=== PATIENT | male | born 1990 | race Caucasian/White ===

== ENCOUNTER 2017-01-03 17:46 | Emergency (ER) | payer OTHER ==
[2017-01-03 17:56] VITALS: BP 138/92
[2017-01-03] MEDS ORDERED: BUPIVACAINE 0.5% PF 30 ML VIAL SUBQ STA (19:29)
[2017-01-03] MEDS ORDERED: BUPIVACAINE 0.25% PF 30 ML VIAL ONE (19:30)
--- NOTE | 2017-01-03 20:01 | ED Physician Documentation ---
History of Present Illness - Stated complaint Stated Complaint: FINGER LAC - Chief complaint Chief Complaint: Ext Problem - History obtained from History obtained from: Patient - Additonal information Additional information: this patient is a 26-year-old male who is right-hand dominant who presents with a complaint of a amputation injury to the right index finger. It occurred shortly prior to arrival when he is using a mandolin to cut [place] fries. He denies any injury elsewhere. First-aid was provided to the scene. His tetanus prophylaxis is up-to-date. Review of systems: For pertinent positive and negatives in the review of systems please see history of present illness. Otherwise all other systems have been reviewed and are negative. Dragon disclaimer: Parts of this medical record were created using voice recognition technology. Because of the inherent limitations of this system occasional same sounding word substitutions do occur and persist despite proofreading. Please read the document for context. PD PAST MEDICAL HISTORY - Past Medical History Past Medical History: No - Past Surgical History Past Surgical History: No - Present Medications Home Medications: Ambulatory Orders Medication Instructions Recorded Confirmed Tramadol HCl 50 mg PO Q8HR PRN #14 tablet 01/03/17 - Allergies Allergies/Adverse Reactions: Allergies Allergy/AdvReac Type Severity Reaction Status Date / Time No Known Drug Allergies Allergy Verified 01/03/17 17:56 - Social History Does the pt smoke?: Yes Smoking Status: Current every day smoker - Immunizations Immunizations are current?: Yes PD ED PE NORMAL - General General: Alert and oriented X 3, No acute distress, Well developed/nourished - HEENT HEENT: Atraumatic - Free text exam Free text exam: On examination the patient has a amputation injury to the right distal phalanx index finger. This amputation is transverse and does involve a small amount of the nail however does not involve the distal phalanx. Results - Vitals Vitals: Vital Signs - 24 hr 01/03/17 17:55 Temperature 36.4 C L Heart Rate 81 Respiratory 16 Rate Blood Pressure 138/92 H O2 Saturation 100 Oxygen O2 Source Room air PD MEDICAL DECISION MAKING - ED course ED course: [id number] male status post amputation to right distal phalanx on the mandolin. Digital nerve was block was performed in usual fashion. 8 cc of Sensorcaine without epinephrine was infused. Once there was good anesthesia of the distal phalanx was cleansed with Hibiclens and water. Patient tolerated procedure well. We discussed management of this amputation. He will continue to do dressing changes, he is not adherent gauze, follow-up with his physician in 3-4 days. Disposition: To home Clinical impression: 1. Amputation distal phalanx right index finger Departure - Departure Disposition: Home, Self Care Clinical Impression: Finger amputation, traumatic Qualifiers: Encounter type: initial encounter Qualified Code(s): S68.119A - Complete traumatic metacarpophalangeal amputation of unspecified finger, initial encounter Condition: Good Instructions: ED Laceration Amputation Finger Tip Open Tx Follow-Up: your,physician [Other] Prescriptions: Tramadol HCl 50 mg PO Q8HR PRN #14 tablet PRN Reason: Pain
== END 2017-01-03 20:45 | disposition home or self-care (01) ==
LOC: ED 17:46
DX: S68.110A Complete traumatic metacarpophalangeal amputation of right index finger, initial encounter (principal); W27.8XXA Contact with other nonpowered hand tool, initial encounter; Y93.G1 Activity, food preparation and clean up; F17.200 Nicotine dependence, unspecified, uncomplicated
CPT/HCPCS: 64450; 99283

== ENCOUNTER 2017-03-27 12:31 | Emergency (ER) | payer OTHER ==
--- NOTE | 2017-03-27 14:20 | ED Physician Documentation ---
PD HPI CHEST PAIN - Stated complaint Stated Complaint: CHEST PX - Chief complaint Chief Complaint: Cardiac - History obtained from History obtained from: Patient - History of Present Illness Timing - onset: How many days ago (few) Timing - onset during: Other (randomly, most often at rest.). No: Light activity, Exertion Timing - duration: Seconds Timing - details: Abrupt onset, Now resolved (he has had brief sharp chest pains that are quite intense when they happen, last just 1-2 seconds and then better. Intermittent and had been every few weeks or so for past year perhaps, but then has had a few of them the past several days. Feels okay between times. Not exertionally related nor related to eating, position, activity.), Intermittant Quality: Sharp, Stabbing, Pain Location: Left chest Radiation: No: Jaw, Neck, Back, Abdominal, Left upper extremity, Right upper extremity, Other Worsened by: No: Exertion, Inspiration, Movement, Palpation, Position Associated symptoms: Shortness of air. No: Diaphoresis, Nausea, Feeling faint / dizzy, Palpitations Similar symptoms before: No diagnosis Recently seen: Not recently seen Review of Systems Constitutional: denies: Fever, Chills Nose: denies: Rhinorrhea / runny nose, Congestion Throat: denies: Sore throat Cardiac: denies: Palpitations, Pedal edema, Calf pain Respiratory: denies: Dyspnea, Cough, Wheezing Neurologic: denies: Near syncope, Syncope PD PAST MEDICAL HISTORY - Past Medical History Cardiovascular: None Respiratory: None Endocrine/Autoimmune: None GI: None : None HEENT: None Psych: Anxiety, Panic attacks Musculoskeletal: None Derm: None Other Past Medical History: mild to moderate anxiet, pt uses vape system for nicotine. Pt states does use energy drinks. - Past Surgical History Past Surgical History: No - Present Medications Home Medications: Ambulatory Orders Medication Instructions Recorded Confirmed Tramadol HCl 50 mg PO Q8HR PRN #14 tablet 01/03/17 Naproxen 375 mg PO BID #20 tablet 03/27/17 - Allergies Allergies/Adverse Reactions: Allergies Allergy/AdvReac Type Severity Reaction Status Date / Time No Known Drug Allergies Allergy Verified 03/27/17 12:41 - Social History Does the pt smoke?: Yes Smoking Status: Current every day smoker Does the pt drink ETOH?: No - Family History Family history: reports: Other (no connective tissue disorders). denies: Venous thromboembolism, Aortic aneursym, Aortic dissection - Immunizations Immunizations are current?: Yes PD ED PE NORMAL - Vitals Vital signs reviewed: Yes - General General: Alert and oriented X 3, No acute distress, Well developed/nourished - HEENT HEENT: Pharynx benign - Neck Neck: Supple, no meningeal sign, No adenopathy, No JVD, No bruit - Cardiac Cardiac: RRR, No murmur - Respiratory Respiratory: Clear bilaterally - Abdomen Abdomen: Soft, Non tender - Derm Derm: Normal color, Warm and dry - Extremities Extremities: No edema, No calf tenderness / cord, Other (thin stature but not Marfanoid and no pectus of chest. ) Results - Vitals Vitals: Oxygen O2 Source Room air - EKG (time done) 12:39 Rate: Rate (enter#) (73) Rhythm: NSR [place]: Normal Intervals: Normal [place] QRS: Normal Ischemia: Normal ST segments. No: ST elevation c/w ischemia, ST depression - Labs Labs: Laboratory Tests 03/27/17 03/27/17 03/27/17 15:00 15:00 15:00 WBC 8.0 RBC 5.33 Hgb 15.1 Hct 43.9 MCV 82.2 MCH 28.3 MCHC 34.4 RDW 14.3 Plt Count 237 MPV 8.9 Neut # 4.6 Lymph # 2.6 [place] # 0.6 Eos # 0.2 Baso # 0.0 Absolute Nucleated RBC 0.00 Nucleated RBC % 0.0 ESR D-Dimer Sodium 138 Potassium 3.9 Chloride 100 L Carbon Dioxide 27 Anion Gap 11.0 BUN 14 Creatinine 0.9 Estimated GFR (MDRD) 101 Glucose 95 Calcium 10.1 Total Bilirubin 0.8 AST 22 ALT 30 Alkaline Phosphatase 43 Troponin I < 0.04 Total Protein 8.0 Albumin 5.2 Globulin 2.8 Albumin/Globulin Ratio 1.9 Lipase 28 03/27/17 03/27/17 15:00 15:00 WBC RBC Hgb Hct MCV MCH MCHC RDW Plt Count MPV Neut # Lymph # [place] # Eos # Baso # Absolute Nucleated RBC Nucleated RBC % ESR 1 D-Dimer < 200.0 L Sodium Potassium Chloride Carbon Dioxide Anion Gap BUN Creatinine Estimated GFR (MDRD) Glucose Calcium Total Bilirubin AST ALT Alkaline Phosphatase Troponin I Total Protein Albumin Globulin Albumin/Globulin Ratio Lipase - Rads (name of study) chest Radiology: Prelim report reviewed (normal) PD MEDICAL DECISION MAKING - ED course Complexity details: considered differential (fleeting intermittent nonexertional chest pains left anterior chest with normal labs here. Unknown cause. ECG normal. ESR normal. D-dimer negative. CXR clear. ), d/w patient Departure - Departure Disposition: 01 Home, Self Care Clinical Impression: Intermittent left-sided chest pain Condition: Stable Record reviewed to determine appropriate education?: Yes Instructions: ED Chest Pain Atypical Unkn Cause Follow-Up: ORNDA Aggarwal [Provider Group] Prescriptions: Naproxen 375 mg PO BID #20 tablet Comments: I do not know the cause of the episodic pain that you are having on the chest. There is no signs of bad causes at this time. Consider an anti-inflammatory such as naproxen twice daily for 7-10 days as there may be some musculoskeletal inflammation causing this. Follow-up with your primary care if persistent symptoms or other symptoms develop with it. Discharge Date/Time: 03/27/17 16:49
[2017-03-27] MEDS ORDERED: SODIUM CHLORIDE FLUSH 0.9% 10 ML SYRINGE IVP ONE (14:52)
[2017-03-27] MEDS ORDERED: HYDROmorphone 1 MG/ML CARPUJECT ONE (14:52)
[2017-03-27] MEDS ORDERED: KETOROLAC 30 MG/ML VIAL ONE (14:52)
--- NOTE | 2017-03-27 14:53 | XRAY Preliminary Report ---
Exam: XR Chest 2 View PA/LAT IMPRESSION: No acute radiographic cardiopulmonary process [facility] SITE ID: [id number]
--- NOTE | 2017-03-27 14:55 | XRAY Report ---
EXAM: CHEST RADIOGRAPHY EXAM DATE: 03/27/2017 02:47 PM. CLINICAL HISTORY: Chest Pain. COMPARISON: None. TECHNIQUE: 2 views. FINDINGS: Lungs/Pleura: No focal opacities evident. No pleural effusion. No pneumothorax. Increased volumes. Mediastinum: Heart and mediastinal contours are unremarkable. Other: None. IMPRESSION: No acute radiographic cardiopulmonary process [facility] Referring Provider Line: [phone] SITE ID: [id number]
[2017-03-27 15:17] LABS: BASOPHILS % (AUTO) 0.4 %; EOSINOPHILS # (AUTO) 0.2 10^3/uL (0.0-0.7); HCT - HEMATOCRIT 43.9 % (42.0-52.0); HGB - HEMOGLOBIN 15.1 g/dL (14.0-18.0); LYMPHOCYTES # (AUTO) 2.6 10^3/uL (1.5-3.5); LYMPHOCYTES % (AUTO) 32.2 %; MEAN CORPUSCULAR HEMOGLOBIN 28.3 pg (27.0-31.0); MEAN CORPUSCULAR HGB CONC 34.4 g/dL (32.0-36.0); MEAN CORPUSCULAR VOLUME 82.2 fL (80.0-94.0); MEAN PLATELET VOLUME 8.9 fL (7.4-11.4); MONOCYTES # (AUTO) 0.6 10^3/uL (0.0-1.0); MONOCYTES % (AUTO) 7.7 %; NEUTROPHILS # (AUTO) 4.6 10^3/uL (1.5-6.6); NEUTROPHILS % (AUTO) 57.7 %; RED BLOOD COUNT 5.33 10^6/uL (4.70-6.10); RED CELL DISTRIBUTION WIDTH 14.3 % (12.0-15.0)
[2017-03-27 15:22] LABS: ALBUMIN/GLOBULIN RATIO 1.9 (1.0-2.2); BILIRUBIN,TOTAL 0.8 mg/dL (0.2-1.0); CALCIUM 10.1 mg/dL (8.5-10.3); CREATININE 0.9 mg/dL (0.6-1.2); POTASSIUM 3.9 mmol/L (3.5-5.0)
[2017-03-27 15:29] VITALS: BP 123/69
== END 2017-03-27 16:49 | disposition home or self-care (01) ==
LOC: ED 12:31
DX: R07.9 Chest pain, unspecified (principal); F17.200 Nicotine dependence, unspecified, uncomplicated
CPT/HCPCS: 36415; 71020; 80053; 83690; 84484; 85025; 85379; 85651; 93005; 99283; 99284

== ENCOUNTER 2017-11-19 21:08 | Emergency (ER) | payer OTHER ==
[2017-11-19 21:21] VITALS: BP 139/77
--- NOTE | 2017-11-19 22:28 | ED Physician Documentation ---
PD HPI HEENT - Stated complaint Stated Complaint: RT EAR PX/LOSS OF HEARING - Chief complaint Chief Complaint: Heent - History obtained from History obtained from: Patient - History of Present Illness Timing - onset: Other (2 days of R ear pain starting on waking with decreased hearing. Pain radiates down toward R jaw. Antecedent to this did have cough/URI/ congestion, now better. Ibuprofen was not veyr helpful.) Pain level max: 5 PD PAST MEDICAL HISTORY - Past Medical History Cardiovascular: None Respiratory: None Endocrine/Autoimmune: None GI: None : None HEENT: None Psych: Anxiety, Panic attacks Musculoskeletal: None Derm: None - Past Surgical History Past Surgical History: No - Present Medications Home Medications: Ambulatory Orders Medication Instructions Recorded Confirmed Tramadol HCl 50 mg PO Q8HR PRN #14 tablet 01/03/17 Naproxen 375 mg PO BID #20 tablet 03/27/17 Amoxicillin 500 mg PO TID #30 capsule 11/19/17 - Allergies Allergies/Adverse Reactions: Allergies Allergy/AdvReac Type Severity Reaction Status Date / Time No Known Drug Allergies Allergy Verified 11/19/17 21:21 - Social History Does the pt smoke?: Yes Smoking Status: Current every day smoker Does the pt drink ETOH?: No - Immunizations Immunizations are current?: Yes PD ED PE NORMAL - Vitals Vital signs reviewed: Yes - General General: Alert and oriented X 3, No acute distress - HEENT HEENT: Other (Bilateral cerumen impaction after removing he does have right otitis media.) - Neck Neck: Supple, no meningeal sign, No bony TTP - Neuro Neuro: Alert and oriented X 3, Normal speech - Psych Psych: Normal mood, Normal affect Results - Vitals Vitals: Vital Signs - 24 hr 11/19/17 21:20 Temperature 36.8 C Heart Rate 90 Respiratory 16 Rate Blood Pressure 139/77 H O2 Saturation 97 Oxygen O2 Source Room air Procedures - General procedure General procedure: Using a combination of curette and syringe irrigation the cerumen from both ear canals was removed with mostly resolution of his symptoms. Departure - Departure Disposition: 01 Home, Self Care Clinical Impression: Impacted cerumen of both ears ROM (right otitis media) Qualifiers: Otitis media type: suppurative Chronicity: acute Recurrence: recurrent Spontaneous tympanic membrane rupture: without spontaneous rupture Qualified Code(s): H66.004 - Acute suppurative otitis media without spontaneous rupture of ear drum, recurrent, right ear Condition: Good Record reviewed to determine appropriate education?: Yes Instructions: ED Otitis Media Acute Adult, ED Wax Ear Home Removal Prescriptions: Amoxicillin 500 mg PO TID #30 capsule Comments: Recheck with your flight surgeon in 1 week. Return if worse. Your blood pressure was elevated today on check into the emergency department. This does not mean that you have hypertension, it is a common phenomenon to come to the emergency department and have elevated blood pressure. I recommend that you see your primary care physician within the week to have it rechecked when you are feeling better.
[2017-11-19] MEDS ORDERED: AMOXICILLIN 250 MG CAPSULE PO STA (22:39)
== END 2017-11-19 22:57 | disposition home or self-care (01) ==
LOC: ED 21:08
DX: H66.004 Acute suppurative otitis media without spontaneous rupture of ear drum, recurrent, right ear (principal); H61.23 Impacted cerumen, bilateral; R03.0 Elevated blood-pressure reading, without diagnosis of hypertension; F17.200 Nicotine dependence, unspecified, uncomplicated
CPT/HCPCS: 69210; 99283; A9270

== ENCOUNTER 2021-05-01 18:33 | Emergency (ER) | payer OTHER ==
[2021-05-01] MEDS ORDERED: KETOROLAC 60 MG/2 ML VIAL IM STA (18:59)
--- NOTE | 2021-05-01 19:02 | ED Physician Documentation ---
History of Present Illness - Stated complaint Stated Complaint: LEFT THIGH PX - Chief complaint Chief Complaint: Ext Problem - History obtained from History obtained from: Patient - History of Present Illness Pain level max: 9 Pain level now: 7 - Additonal information Additional information: 30-year-old male with left thigh pain. This started about a week ago. Is gradually worsened since that time. Worse with movement and better with rest. Has not taken anything for the pain. Went to the walk-in clinic today and they were concerned about potential DVT so sent him here. Patient has no leg swelling. No recent travel. No history of trauma. Review of Systems Ten Systems: 10 systems reviewed and negative Constitutional: denies: Fever, Chills GI: denies: Nausea, Vomiting, Diarrhea Skin: denies: Rash Musculoskeletal: denies: Neck pain, Back pain Neurologic: denies: Headache PD PAST MEDICAL HISTORY - Past Medical History Cardiovascular: None Respiratory: None Endocrine/Autoimmune: None GI: None : None HEENT: None Psych: Anxiety, Panic attacks Musculoskeletal: None Derm: None - Past Surgical History Past Surgical History: No - Present Medications Home Medications: Ambulatory Orders Medication Instructions Recorded Confirmed Fluoxetine HCl [Prozac] 60 mg PO DAILY 05/01/21 05/01/21 Lisinopril [Zestril] 20 mg PO DAILY 05/01/21 05/01/21 Meloxicam [Mobic] 15 mg PO DAILY PRN #20 tablet 05/01/21 - Allergies Allergies/Adverse Reactions: Allergies Allergy/AdvReac Type Severity Reaction Status Date / Time No Known Drug Allergies Allergy Verified 05/01/21 18:44 - Social History Does the pt smoke?: Yes Smoking Status: Current every day smoker Does the pt drink ETOH?: No Does the pt have substance abuse?: No - Immunizations Immunizations are current?: Yes - POLST Patient has POLST: No PD ED PE NORMAL - Vitals Vital signs reviewed: Yes - General General: Alert and oriented X 3, No acute distress, Well developed/nourished - HEENT HEENT: Moist mucous membranes - Neck Neck: Supple, no meningeal sign - Cardiac Cardiac: RRR - Respiratory Respiratory: No respiratory distress, Clear bilaterally - Derm Derm: Warm and dry - Extremities Extremities: Other (Left leg - Tender to palpation over the left anterior thigh at the proximal aspect, hip flexor area. Pain is worse with active range of motion, lessened with passive range of motion. Full range of motion present. No palpable hernias. Neurovascular intact. No leg swelling. no skin changes) - Neuro Neuro: Alert and oriented X 3 Results - Vitals Vitals: Vital Signs - 24 hr 05/01/21 05/01/21 05/01/21 18:40 20:00 20:33 Temperature 36.7 C Heart Rate 82 76 72 Respiratory 18 19 17 Rate Blood Pressure 157/114 H 146/93 H 148/98 H O2 Saturation 99 95 95 Oxygen O2 Source Room air - Rads (name of study) L hip xray Radiology: Final report received, EMP read contemporaneously, See rad report (no acute abnormality) LLE duplex US Radiology: Final report received, EMP read contemporaneously, See rad report (no DVT) PD MEDICAL DECISION MAKING - ED course Complexity details: reviewed results, re-evaluated patient, considered differential, d/w patient ED course: 30-year-old male appears to have a hip flexor tendinitis. Will place on long-acting anti-inflammatories. He was sent from the walk-in clinic for evaluation for DVT. This is negative. There are no bony irregularities to suggest fracture or sarcomas. We will have him follow-up with his doctor for further care, encourage gentle stretching. Patient counseled regarding signs and symptoms for which I believe and urgent re-evaluation would be necessary. Patient with good understanding of and agreement to plan and is comfortable going home at this time This document was made in part using voice recognition software. While efforts are made to proofread this document, sound alike and grammatical errors may occur. Departure - Departure Disposition: 01 Home, Self Care Clinical Impression: Hip flexor tendonitis Qualifiers: Laterality: left Qualified Code(s): M76.892 - Other specified enthesopathies of left lower limb, excluding foot Condition: Good Instructions: Exercise Lower Body Hip Flexor, Hip Flexor Stretch Follow-Up: your,doctor in 1 week [Other] Prescriptions: Meloxicam [Mobic] 15 mg PO DAILY PRN #20 tablet PRN Reason: pain Comments: Your x-ray and ultrasound did not show any acute abnormalities today. Continue to gently stretch the hip flexor. Return if you worsen. Your prescriptions were sent to the [facility]. Discharge Date/Time: 05/01/21 20:36
--- NOTE | 2021-05-01 20:12 | Ultrasound Report ---
PROCEDURE: Duplex Ext Veins Left INDICATIONS: L thigh pain TECHNIQUE: Real-time imaging, as well as color and pulse Doppler interrogation, were performed of the lower extr emity deep veins from the inguinal ligament to the popliteal fossa. COMPARISON: None. FINDINGS: The deep veins are normally compressible, and free of intraluminal thrombus. Color and pu lse Doppler demonstrate normal phasic intraluminal flow. There is normal augmentation response to di stal compression maneuver. IMPRESSION: No DVT in the left lower extremity. Reviewed by: Ruddy Batres MD on 05/01/2021 8:11 PM PST Approved by: Ruddy Batres MD on 05/01/2021 8:11 PM PST Station ID: [id number]
--- NOTE | 2021-05-01 20:15 | XRAY Report ---
PROCEDURE: Hip w/Pelvis 2-3V LT INDICATIONS: L leg and hip pain, no injury TECHNIQUE: AP pelvis with lateral view(s) of the bilateral hip(s). COMPARISON: None. FINDINGS: Bones: No fracture or dislocations. Pelvic ring appears intact. No suspicious bony lesions. Soft tissues: The visualized bowel gas pattern is normal. No suspicious soft tissue calcifications. IMPRESSION: No fracture or dislocation. If clinical symptoms persist or suspicion for internal derang ement is high, MRI is suggested for follow-up evaluation. Reviewed by: Ruddy Batres MD on 05/01/2021 8:13 PM PST Approved by: Ruddy Batres MD on 05/01/2021 8:13 PM PST Station ID: [id number]
[2021-05-01 20:33] VITALS: BP 148/98
== END 2021-05-01 20:36 | disposition home or self-care (01) ==
LOC: ED 18:33
DX: M76.892 Other specified enthesopathies of left lower limb, excluding foot (principal); F17.200 Nicotine dependence, unspecified, uncomplicated
CPT/HCPCS: 96372; 99283; 99284

== ENCOUNTER 2021-09-13 12:39 | Outpatient (CLI) | payer OTHER ==
[2021-09-13 13:36] VITALS: BP 129/74
--- NOTE | 2021-09-13 13:36 | SLEEP CARE CONSULTATION ---
Information from patient questionnaire entered by Rodríguez Kaba MA. I have reviewed and concur with the information entered by Rodríguez Kaba MA. This document represents the service I personally performed and the decisions made by me, Karley Ellison ARNP. History of Present Illness Service Date and Time: 09/13/2021 1239 Reason for Visit: New patient (onset 08/2011, no priors,) Chief Complaint: reports: Unrefreshed sleep, Snoring, Excessive daytime sleepine ss, Observed pauses in breathing, Fatigue, Frequent awakenings at night Date of Onset: 5 YEARS Usual bedtime: 2000 Time it takes to fall asleep: 1-2 HOURS Snores at night: Yes Observed to quit breathing while asleep: Yes Sleeps alone due to snoring: Yes Number of times waking at night: OFTEN; 4-5 times on average Reasons for waking at night: reports: Snoring, Other (unknown reasons) Toss, Turn, or Twitch while sleeping: Yes Recalls having dreams: Yes Usually gets out of bed at: 0530 Feels refreshed in the morning: No Morning headache: Yes (daily; mild headache that goes away once he is moving around in morning) Sleepy or fatigued during the day: Yes Ever fallen asleep while driving: Yes (drowsy driving; gone out of [place], falls asleep at stoplight) Takes day naps: Yes (3-4 times a week for 1-2 hours) Dreams during day naps: Yes (vivid dreams) Prior sleep studies: No Additional HPI information: I had the pleasure of seeing TINO NEFF today regarding the possibility of him having a sleep disorder. His current complaints are excessive daytime sleepiness, observed pauses in breathing, fatigue, snoring, unrefreshed sleep and frequent night awakenings. He states he snores loudly and his ex- told him he stops breathing at night. He states he never feels rested during the day even if he sleeps all night. He lays down at 2000 but does not fall asleep for a couple hours. He will watch a movie or play on phone until sleepy. - Parasomnia Symptoms Ever been unable to move upon waking from sleep: No Walks in sleep: Yes Talks in sleep: Yes Ever acted out dreams in sleep: Yes Ever felt weak in the knees when startled or emotional: No Bothered by creepy, crawly, restless sensations in legs: No Problems with memory or concentration: No Subjective Initial [place] Sleepiness Scale score: 14 (09/12) Past Medical History Past Medical History: reports: Hypertension, Anxiety, Depression, Other (vasectomy 2019) Social History The patient's occupation is a AM. Patient is and [place] in [place]. Have you smoked in the past 12 months: Yes (vapes) Cigarettes per day (20/pack): 1 (VAPE) Years of smokin Smoking Pack Years: 0 Alcohol use: Yes Alcohol amount and frequency: 2-3 X WEEKLY Caffeine use: Yes Caffeine amount and frequency: 1-2 energy drinks X WEEKLY Family History Family history of sleep disordered breathing: Yes Family Hx Sleep Apnea: Mother: Snoring, Father: Snoring Allergies and Home Medications Drug allergies reviewed: Yes (NKDA) Home medication list reviewed: Yes Allergy and home medication list: Allergies No Known Drug Allergies Allergy (Verified 05/01/21 18:44) Medications: Fluoxetine 60 mg daily Lisinopril 20 mg daily Review of Systems Weight gain over past 5 years: 30 Cardiovascular: reports: high blood pressure Neurological: denies: headaches, head trauma Psychiatric: reports: anxiety, depression Ear/Nose/Throat: reports: nose bleeds (random), wisdom teeth removed. denies: injury to nose, tonsillectomy Endocrine: reports: sluggishness, too hot or cold Physical Exam Vital signs obtained and entered by: Linda KABA CMA [facility] Blood Pressure: 129/74 (LEFT, 85 RESP 16, PULSE 85,) Heart Rate: 84 O2 Saturation: 97 (CLOTH) Height: 5 ft 9 in Weight: 250 lb Body Mass Index: 36.9 BMI Classification: Obese Neck circumference: 15.5 (INCHES) Mouth and throat: normal Soft palate: long Hard palate: normal Uvula: normal Uvula visualization: 50% Mallampati Class II Tongue: normal in size Tonsils: 1+ Neck: normal w/o lymphadenopathy or thyromegaly Heart: regular rate and rhythm Lungs: clear bilaterally Impression and Plan 1. Suspected Obstructive Sleep Apnea-Hypopnea Syndrome, as suggested by a history of loud and irregular snoring, observed cessation of breath while asleep, morning headache, frequent awakening during the night, unrefreshed sleep, cognitive impairment, and excessive daytime sleepiness. Narrow oropharynx and obesity are common predisposing factors for obstructive sleep apnea-hypopnea syndrome. I recommend proceeding to polysomnography to confirm the diagnosis and to assess severity. If the patient has significant sleep disordered breathing, a manual CPAP titration study will also be performed to find the optimal treatment pressure. I informed the patient of what the sleep studies involve and after some discussion, obtained agreement to proceed. The pathophysiology of obstr uctive sleep apnea-hypopnea syndrome was discussed with the patient and health risks of cardiovascular and cerebrovascular disease if not treated. Risks of drowsy driving discussed in detail and patient advised to avoid long distance driving and to hide puller at the first sign of drowsiness. Patient agreed to plan. * Schedule polysomnography +- manual CPAP titration study and return in 1-2 weeks after the study to discuss result and initiate therapy. * Avoid long distance driving or driving when feeling sleepy. * Avoid alcohol, sedative and muscle relaxant around bedtime. * Attempt to lose weight. * Review instructions provided by trained office staff on how to prepare for the sleep study. * Return for follow-up after sleep study completed. Counseling Topics: Weight loss health impact Visit Type: In Office Time Spent with Patient (minutes): 35 Provider Statement: I spent 100% of the Face to Face Visit with the patient with greater than 50% spent counseling the patient and coordination of care.
== END 2021-09-13 12:40 | disposition home or self-care (01) ==
LOC: SC 12:39
PROVIDERS: ATTEND Nurse Practitioner Family
DX: R06.83 Snoring (principal); G47.8 Other sleep disorders; R06.81 Apnea, not elsewhere classified; R51.9 Headache, unspecified; G47.10 Hypersomnia, unspecified; R53.83 Other fatigue; I10 Essential (primary) hypertension; F17.290 Nicotine dependence, other tobacco product, uncomplicated; E66.9 Obesity, unspecified; Z68.36 Body mass index [BMI] 36.0-36.9, adult
CPT/HCPCS: 99203; 99212

== ENCOUNTER 2021-10-15 19:46 | Outpatient (CLI) | payer OTHER | END 2021-10-15 19:47 | disposition home or self-care (01) | LOC: SC 19:46 | PROVIDERS: ATTEND Nurse Practitioner Family | DX: G47.33 Obstructive sleep apnea (adult) (pediatric) (principal) | CPT/HCPCS: 95810 ==

== ENCOUNTER 2021-10-26 11:29 | Outpatient (CLI) | payer OTHER ==
--- NOTE | 2021-10-26 12:00 | SLEEP CARE CONSULTATION ---
Information from patient questionnaire entered by Rodríguez Kaba MA. I have reviewed and concur with the information entered by Rodríguez Kaba MA. This document represents the service I personally performed and the decisions made by , Karley Elilson ARNP. History of Present Illness Service Date and Time: 10/26/2021 1129 Initial [place] Sleepiness Scale score: 14 (2021) Current [place] Sleepiness Scale score: 20 (10/2021) Additional HPI information: TINO NEFF returns for follow up and results of the recently performed polysomnography. I explained the pathophysiology behind obstructive sleep apnea. We then spent quite a bit of time discussing different treatment options. For mild obstructive sleep apnea, surgery and oral appliance are alternatives to nasal CPAP therapy but in moderate or severe cases, nasal CPAP is the most effective and reliable treatment. I reviewed the impact of weight changes on sleep apnea and strongly recommended losing weight. After some discussion, the patient opted to go with the nasal CPAP therapy. Nasal autoCPAP set at 5-20 cmH20 will be ordered with rationale explained. A manual titration study will be ordered if unable to find optimal pressure with office adjustments. I explained how CPAP machine works and what to expect when using the machine. Using CPAP every night in order to get used to it was emphasized. Patient advised to put CPAP mask on before getting into bed so as not to fall asleep without CPAP. To assist acclimation to CPAP use, it could also be used for a short time during day while reading or watching TV. The patient was instructed to call the CPAP supplier to discuss any mechanical problem that may occur. If the mask given is uncomfortable or is difficult to keep on through the night even with adjustment, contact the CPAP supplier as many will replace with another mask style if notified before 30 days. If snoring or perceives is not getting enough air or too much air from the machine, notify this office. AASM patient education PAP tips reviewed and given to patient. Patient counseled not drink alcohol less than 4 hours before bedtime as it can increase snoring and apnea. Patient was cautioned about risks of drowsy driving until sleepiness symptoms resolve. Sleep Study - Results Type of Sleep Study: Polysomnography (F/U POLY. 10/15/21 [facility],) Prior sleep studies: No Polysomnography/Home Sleep Study results: IMPRESSION: The quality of the study is good. The patient had reduced sleep efficiency frequent awakenings throughout the night. The sleep architecture was abnormal for sleep fragmentation and reduced amount of time spent in REM and slow wave sleep (N3). Respiratory monitoring showed severe obstructive sleep apnea-hypopnea (AHI = 49.8) associated with frequent arousals, oxyhemoglobin desaturation and moderate hypoxia (deion oxygen saturation of 79%). The respiratory events occurred more frequently during supine sleep (supine AHI = 85.3; nonsupine = 34.71). Snore was moderate to loud in intensity. There was no significant periodic leg movement of sleep. Cardiac rhythm was normal sinus rhythm without significant arrhythmia. No abnormal behavior (parasomnia) observed during the night. Allergies and Home Medications Known drug allergies: No Drug allergies reviewed: Yes Home medication list reviewed: Yes (no changes) Allergy and home medication list: Allergies No Known Drug Allergies Allergy (Verified 05/01/21 18:44) Review of Systems Review of systems same as previous: Yes (no changes) Physical Exam Vital signs obtained and entered by: Linda KABA CMA AAPR, Blood Pressure: 128/72 (RESP 18, PULSE 81, LEFT) Cuff size: wrist Heart Rate: 83 O2 Saturation: 97 Height: 5 ft 9 in Weight: 250 lb (CLOTHES) Body Mass Index: 36.9 BMI Classification: Obese Impression and Plan 1. Obstructive Sleep Apnea-Hypopnea Syndrome, severe, with lowest oxygen saturation of 79%. Obviously this is the cause of the patients symptoms of unrefreshed sleep, and excessive daytime sleepiness. Positive pressure therapy could benefit hypertension, anxiety and depression. As mentioned above, the patient will be started on nasal autoCPAP therapy with pressure set at 5-20 cmH2 O. A manual titration study will be completed if unable to find optimal treatment pressure with office adjustments. Compliance guidelines also reviewed. A copy of compliance guidelines will be given for reference at check out. Because the apnea is more severe supine, I instructed to avoid sleeping supine using pillow positioning until able to start CPAP use. 2. Hypoxemia, moderate, deion oxygen saturation of 79% with 32.4 minutes spent under 90%. His baseline oxygen saturation was normal with an average oxygen saturation of 93%. * Nasal auto CPAP therapy, pressure at 5-20 cm H2O. * Attempt to lose weight. * Avoid alcohol consumption near bedtime. * Avoid supine sleep until using CPAP. * The patient is again cautioned about driving until sleepiness completely resolves. * Return one month after CPAP obtained. I will assess response to therapy and compliance at that time. Counseling Topics: Weight loss health impact Visit Type: In Office Time Spent with Patient (minutes): 20 Provider Statement: I spent 100% of the Face to Face Visit with the patient with greater than 50% spent counseling the patient and coordination of care.
[2021-10-26 12:01] VITALS: BP 128/72
== END 2021-10-26 11:30 | disposition home or self-care (01) ==
LOC: SC 11:29
PROVIDERS: ATTEND Nurse Practitioner Family
DX: G47.33 Obstructive sleep apnea (adult) (pediatric) (principal); R09.02 Hypoxemia; E66.9 Obesity, unspecified; Z68.36 Body mass index [BMI] 36.0-36.9, adult
CPT/HCPCS: 99212; 99213

== ENCOUNTER 2021-12-12 11:34 | Outpatient (CLI) | payer OTHER ==
--- NOTE | 2021-12-12 13:06 | XRAY Report ---
PROCEDURE: Ankle 3 View RT INDICATIONS: PX R ANKLE JT TECHNIQUE: 3 views of the ankle were acquired. COMPARISON: None FINDINGS: Bones: No fractures or dislocations. Ankle mortise is normally aligned. No suspicious bony lesions . Soft tissues: No tibiotalar joint effusion. Achilles tendon appears normal. IMPRESSION: No acute fracture. No osseous lesion. If symptoms and/or clinical suspicion for patholog y continue, further assessment with repeat plain films, or advanced imaging (e.g., CT, MRI, or bone s can) is recommended for further assessment. Reviewed by: Mitzi Urias MD on 12/12/2021 1:05 PM PDT Approved by: Mitzi Urias MD on 12/12/2021 1:05 PM PDT Station ID: [id number]
== END 2021-12-12 11:35 | disposition home or self-care (01) ==
LOC: DI 11:34
PROVIDERS: ATTEND Physician Assistant
DX: M25.571 Pain in right ankle and joints of right foot (principal)

== ENCOUNTER 2023-06-27 10:44 | Emergency (ER) | payer OTHER ==
--- NOTE | 2023-06-27 11:10 | ED Physician Documentation ---
History of Present Illness - Stated complaint Stated Complaint: SHAKING/N/V - Chief complaint Chief Complaint: General - History obtained from History obtained from: Patient, Friend - Additonal information Additional information: Patient presents from the [facility] (acquired by [facility] in 2014) with a friend. He reports that he has been drinking over a liter of vodka a day for prolonged period of time over the last week or so he has been able to cut back to about 12-15 shots of vodka a day. Last alcoholic beverage was last night around 1999 he is here today with severe tremors, body aches, nausea vomiting. 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 PD PAST MEDICAL HISTORY - Past Medical History Past Medical History: Yes Cardiovascular: None Respiratory: None Endocrine/Autoimmune: None GI: None : None HEENT: None Psych: Anxiety, Panic attacks Musculoskeletal: None Derm: None - Past Surgical History Past Surgical History: No - Present Medications Home Medications: Ambulatory Orders Medication Instructions Recorded Confirmed Fluoxetine HCl [Prozac] 40 mg PO DAILY 05/01/21 06/27/23 Lisinopril [Zestril] 20 mg PO DAILY 05/01/21 06/27/23 - Allergies Allergies/Adverse Reactions: Allergies Allergy/AdvReac Type Severity Reaction Status Date / Time No Known Drug Allergies Allergy Verified 06/27/23 10:57 - Social History Does the pt smoke?: Yes Smoking Status: Current every day smoker Does the pt drink ETOH?: Yes Does the pt have substance abuse?: No - Immunizations Immunizations are current?: Yes - POLST Patient has POLST: No PD ED PE NORMAL - Vitals Vital signs reviewed: Yes - General General: Alert and oriented X 3 - Cardiac Cardiac: No murmur, Strong equal pulses - Respiratory Respiratory: No respiratory distress - Derm Derm: Other (flushed) - Neuro Neuro: Alert and oriented X 3 Verbal: Oriented - Psych Psych: Other (anxious) - Free text exam Free text exam: Patient appears to be diaphoretic quite flush with generalized body tremors Results - Vitals Vitals: Vital Signs - 24 hr 06/27/23 06/27/23 10:50 13:09 Temperature 36.6 C Heart Rate 97 88 Respiratory 24 16 Rate Blood Pressure 208/106 H 169/109 H O2 Saturation 96 95 Oxygen O2 Source Room air - EKG (time done) 1235 EKG releavant findings:: EKG personally interpreted by author of this note. Relevant findings are: Rate: Rate (enter#) (87) Rhythm: NSR, Other (Some ST depression on the anterior leads) Reliance: Normal Intervals: Prolonged QT QRS: Normal Ischemia: ST depression Compare to prior EKG: Changed from prior EKG - Labs Labs: Laboratory Tests 06/27/23 06/27/23 06/27/23 11:17 11:17 13:25 WBC 10.3 RBC 5.88 Hgb 19.2 H Hct 52.6 H MCV 89.5 MCH 32.7 H MCHC 36.5 H RDW 13.1 Plt Count 343 MPV 10.8 Neut # (Auto) 7.9 H Lymph # (Auto) 1.4 L Garrard # (Auto) 0.9 Eos # (Auto) 0.0 Baso # (Auto) 0.0 Absolute Nucleated RBC 0.00 Nucleated RBC % 0.0 Sodium 135 Potassium 3.3 L Chloride 91 L Carbon Dioxide 28 Anion Gap 16.0 H BUN 6 Creatinine 0.8 Estimated GFR (MDRD) 111 Glucose 125 H Calcium 9.6 Magnesium 1.2 L Total Bilirubin 1.3 H AST 133 H ALT 162 H Alkaline Phosphatase 73 Troponin I High Sens 5.3 B-Natriuretic Peptide Total Protein 8.4 Albumin 5.0 Globulin 3.4 Albumin/Globulin Ratio 1.5 Lipase 34 Ethyl Alcohol < 10.0 06/27/23 13:25 WBC RBC Hgb Hct MCV MCH MCHC RDW Plt Count MPV Neut # (Auto) Lymph # (Auto) Garrard # (Auto) Eos # (Auto) Baso # (Auto) Absolute Nucleated RBC Nucleated RBC % Sodium Potassium Chloride Carbon Dioxide Anion Gap BUN Creatinine Estimated GFR (MDRD) Glucose Calcium Magnesium Total Bilirubin AST ALT Alkaline Phosphatase Troponin I High Sens B-Natriuretic Peptide 23 Total Protein Albumin Globulin Albumin/Globulin Ratio Lipase Ethyl Alcohol PD Medical Decision Making - ED course ED course: Patient reports he is motivated to go to rehab. While phenobarb was processed in the pharmacy we started patient on lorazepam initial CIWA score from myself was 27 points. 130 mg of phenobarb ordered to help with DTs ECG complete which shows some ST depression in the anterior leads we will order chest x-ray, BNP, troponin to rule out alcohol induced cardiomyopathy. Patient denies any chest pain. Some DTs remain overall his CIWA has improved significantly because of his ongoing tremors, ordered 1 more dose of 130 mg IV phenobarb around 1300 Departure - Departure Forms: PCP List
[2023-06-27] MEDS ORDERED: LORazepam 2 MG/ML VIAL IVP STA (11:24)
[2023-06-27] MEDS ORDERED: PHENobarbital 65 MG/ML VIAL IV STA ×2 (11:25→13:02)
[2023-06-27] MEDS ORDERED: SODIUM CHLORIDE 0.9% 1,000 ML IV STA (11:26)
[2023-06-27 11:33] LABS: BASOPHILS % (AUTO) 0.4 %; HCT - HEMATOCRIT 52.6 % (42.0-52.0); HGB - HEMOGLOBIN 19.2 g/dL (14.0-18.0); LYMPHOCYTES # (AUTO) 1.4 10^3/uL (1.5-3.5); LYMPHOCYTES % (AUTO) 13.5 %; MEAN CORPUSCULAR HEMOGLOBIN 32.7 pg (27.0-31.0); MEAN CORPUSCULAR HGB CONC 36.5 g/dL (32.0-36.0); MEAN CORPUSCULAR VOLUME 89.5 fL (80.0-94.0); MEAN PLATELET VOLUME 10.8 fL (7.4-11.4); MONOCYTES # (AUTO) 0.9 10^3/uL (0.0-1.0); MONOCYTES % (AUTO) 9.1 %; NEUTROPHILS # (AUTO) 7.9 10^3/uL (1.5-6.6); NEUTROPHILS % (AUTO) 76.7 %; PLT - PLATELET COUNT 343 10^3/uL (130-450); RED BLOOD COUNT 5.88 10^6/uL (4.70-6.10); RED CELL DISTRIBUTION WIDTH 13.1 % (12.0-15.0); WHITE BLOOD COUNT 10.3 x10^3/uL (4.8-10.8)
[2023-06-27 11:51] LABS: ETOH - ETHANOL < 10.0 mg/dL; LIPASE 34 U/L (11-82); MAGNESIUM 1.2 mg/dL (1.7-2.3)
[2023-06-27 11:56] LABS: ALBUMIN/GLOBULIN RATIO 1.5 (1.0-2.2); ALKALINE PHOSPHATASE 73 IU/L (42-121); ALT ALANINE AMINOTRANSFERASE 162 IU/L (10-60); AST ASPARTATE AMINOTRANSFERASE 133 IU/L (10-42); BILIRUBIN,TOTAL 1.3 mg/dL (0.2-1.0); BUN - BLOOD UREA NITROGEN 6 mg/dL (6-20); CALCIUM 9.6 mg/dL (8.5-10.3); CARBON DIOXIDE - CO2 28 mmol/L (21-32); CHLORIDE 91 mmol/L (101-111); CREATININE 0.8 mg/dL (0.6-1.3); GFR - MDRD 111 (>89); GLUCOSE 125 mg/dL (74-104); POTASSIUM 3.3 mmol/L (3.5-4.5); SODIUM 135 mmol/L (135-145); TOTAL PROTEIN 8.4 g/dL (6.4-8.9)
[2023-06-27] MEDS ORDERED: POTASSIUM CHLORIDE 20 MEQ TABLET PO STA (12:37)
[2023-06-27] MEDS ORDERED: MAGNESIUM OXIDE 400 MG TABLET PO STA (12:39)
--- NOTE | 2023-06-27 13:55 | XRAY Report ---
PROCEDURE: Chest 2V INDICATIONS: abnormal ECG TECHNIQUE: 2 views of the chest were acquired. COMPARISON: 03/27/2017 FINDINGS: Surgical changes and devices: None. Lungs and pleura: No pleural effusions or pneumothorax. Lungs are clear. Mediastinum: Mediastinal contours appear normal. Heart size is normal. Bones and chest wall: No suspicious bony lesions. Overlying soft tissues appear unremarkable. IMPRESSION: No acute process. Reviewed by: Mitzi Urias MD on 06/27/2023 1:54 PM [facility] Approved by: Mitzi Urias MD on 06/27/2023 1:54 PM [facility] Station ID: [id number]
[2023-06-27] MEDS ORDERED: LORazepam 1 MG TABLET PO STA (15:50)
[2023-06-27 17:54] VITALS: BP 157/107; O2SAT 97
== END 2023-06-27 17:52 | disposition home or self-care (01) ==
LOC: ED 10:44
DX: F10.139 Alcohol abuse with withdrawal, unspecified (principal); Y90.0 Blood alcohol level of less than 20 mg/100 ml; E87.6 Hypokalemia; F17.200 Nicotine dependence, unspecified, uncomplicated
CPT/HCPCS: 36415; 71046; 80053; 80320; 83690; 83735; 83880; 84484; 85025; 93005; 96361; 96374; 99284; A9270; J2060; J2560; J8499

== ENCOUNTER 2023-09-22 10:32 | Emergency (ER) | payer OTHER ==
[2023-09-22 10:59] VITALS: BP 151/73; O2SAT 97
[2023-09-22 10:59] LABS: RAPID STREP SCREEN Negative (Negative)
--- NOTE | 2023-09-22 11:11 | ED Physician Documentation ---
PD HPI URI - Stated complaint Stated Complaint: SORE THROAT - Chief complaint Chief Complaint: Heent - History obtained from History obtained from: Patient - History of Present Illness Timing - onset: How many days ago (8) Timing duration: Days (8) Timing details: Abrupt onset, Still present Associated symptoms: Fever, Nasal congestion (minimal), Sore throat, Swollen nodes, Dry cough (minimal) Contributing factors: Sick contact (his tested positive for strep when seen yesterday at Clinic.) Review of Systems Constitutional: reports: Fever, Chills Throat: reports: Sore throat, Swollen tonsils PD PAST MEDICAL HISTORY - Past Medical History Cardiovascular: None Respiratory: None Endocrine/Autoimmune: None GI: None : None HEENT: None Psych: Anxiety, Panic attacks Musculoskeletal: None Derm: None - Past Surgical History Past Surgical History: No - Present Medications Home Medications: Ambulatory Orders Medication Instructions Recorded Confirmed Fluoxetine HCl [Prozac] 40 mg PO DAILY 05/01/21 06/27/23 Lisinopril [Zestril] 20 mg PO DAILY 05/01/21 06/27/23 LORazepam [Ativan] 1 mg PO TID PRN #12 tablet 06/27/23 Amoxicillin 500 mg PO TID #21 cap 09/22/23 Ibuprofen [Motrin] 600 mg PO TID PRN #25 tab 09/22/23 - Allergies Allergies/Adverse Reactions: Allergies Allergy/AdvReac Type Severity Reaction Status Date / Time No Known Drug Allergies Allergy Verified 06/27/23 10:57 - Social History Does the pt smoke?: Yes Smoking Status: Current every day smoker Does the pt drink ETOH?: No Does the pt have substance abuse?: No - Immunizations Immunizations are current?: Yes - POLST Patient has POLST: No PD ED PE NORMAL - Vitals Vital signs reviewed: Yes - General General: Alert and oriented X 3, No acute distress, Well developed/nourished - HEENT HEENT: No: Pharynx benign (tonsils red and swollen bilaterally. No peritonsillar edema nor deviation. ) - Neck Neck: Supple, no meningeal sign, Other (anterior adenopathy bilaterallly. ) - Cardiac Cardiac: RRR, No murmur - Respiratory Respiratory: Clear bilaterally - Abdomen Abdomen: Soft, Non tender, No organomegaly Results - Vitals Vitals: Oxygen O2 Source Room air - Labs Labs: Microbiology 09/22/23 10:46 Group A Strep Throat Culture - Preliminary Throat Laboratory Tests 09/22/23 10:46 Group A Strep Rapid Negative PD Medical Decision Making - ED course Complexity details: considered differential (mainly sore throat with some congestion and minimal cough. Tonsils swollen and has adenopathy. His with similar and tested positive for strep yesterday at Clinic. Will treat empirically. ), d/w patient Departure - Departure Disposition: Home, Self Care Clinical Impression: Acute pharyngitis Condition: Stable Record reviewed to determine appropriate education?: Yes Instructions: ED Strep Pharyngitis Poss Follow-Up: KARO CANALES FNP [Primary Care Provider] - Prescriptions: Amoxicillin 500 mg PO TID #21 cap Ibuprofen [Motrin] 600 mg PO TID PRN #25 tab PRN Reason: Pain Comments: Your tonsils are enlarged and appear infected. Clinically I would say a is sounds likely that you have a bacterial pharyngitis especially since your was positive for strep throat. Your rapid strep test is negative but would still treat empirically. You are given a dose of anti-inflammatory and antibiotic here. I wrote prescriptions for NSAIDs and antibiotics to your preferred pharmacy, [facility] in [place]. Stay well-hydrated. Add Tylenol every 4-6 hours if needed for pain. I would anticipate improvement over the next several days and resolution over 3 to 5 days. Forms: PCP List Discharge Date/Time: 09/22/23 11:45
[2023-09-22] MEDS: AMOXICILLIN 250 MG CAPSULE PO STA (11:40)
[2023-09-22] MEDS: dexAMETHasone 4 MG TABLET PO STA (11:40)
[2023-09-22] MEDS: ACETAMINOPHEN 500 MG TABLET PO STA (11:40)
== END 2023-09-22 11:45 | disposition home or self-care (01) ==
LOC: ED 10:32
DX: J02.9 Acute pharyngitis, unspecified (principal); F17.200 Nicotine dependence, unspecified, uncomplicated
CPT/HCPCS: 87070; 87430; 99283; A9270; J8540

== ENCOUNTER 2023-10-01 10:23 | Outpatient (CLI) | payer OTHER | END 2023-10-01 23:59 | disposition critical access hospital (66) | LOC: EMS 10:23 | DX: R45.851 Suicidal ideations (principal) | CPT/HCPCS: A0425; A0429 ==

== ENCOUNTER 2023-10-01 10:44 | Emergency (ER) | payer OTHER ==
[2023-10-01 11:14] LABS: BILIRUBIN,URINE NEGATIVE (NEGATIVE); GLUCOSE, URINE (UA) NEGATIVE (NEGATIVE); KETONES,URINE (UA) NEGATIVE (NEGATIVE); LEUKOCYTE ESTERASE, URINE NEGATIVE (NEGATIVE); NITRITE,URINE NEGATIVE (NEGATIVE); OCCULT BLOOD,URINE NEGATIVE (NEGATIVE); PROTEIN,URINE NEGATIVE (NEGATIVE); UROBILINOGEN,URINE 1 (NORMAL) E.U./dL (NORMAL)
[2023-10-01 11:20] LABS: BASOPHILS % (AUTO) 0.4 %; EOSINOPHILS # (AUTO) 0.1 10^3/uL (0.0-0.7); EOSINOPHILS % (AUTO) 0.7 %; HCT - HEMATOCRIT 48.4 % (42.0-52.0); HGB - HEMOGLOBIN 16.5 g/dL (14.0-18.0); LYMPHOCYTES # (AUTO) 2.2 10^3/uL (1.5-3.5); LYMPHOCYTES % (AUTO) 20.9 %; MEAN CORPUSCULAR HGB CONC 34.1 g/dL (32.0-36.0); MEAN CORPUSCULAR VOLUME 85.2 fL (80.0-94.0); MEAN PLATELET VOLUME 10.4 fL (7.4-11.4); MONOCYTES # (AUTO) 0.8 10^3/uL (0.0-1.0); MONOCYTES % (AUTO) 7.5 %; NEUTROPHILS # (AUTO) 7.2 10^3/uL (1.5-6.6); NEUTROPHILS % (AUTO) 70.1 %; PLT - PLATELET COUNT 322 10^3/uL (130-450); RED BLOOD COUNT 5.68 10^6/uL (4.70-6.10); RED CELL DISTRIBUTION WIDTH 13.1 % (12.0-15.0); WHITE BLOOD COUNT 10.3 x10^3/uL (4.8-10.8)
[2023-10-01 11:22] LABS: CLARITY,URINE CLEAR (CLEAR)
[2023-10-01 11:24] LABS: AMPHETAMINE SCREEN,URINE NEGATIVE (NEGATIVE); BARBITURATE SCREEN,UR NEGATIVE (NEGATIVE); BENZODIAZEPINES SCREEN, URINE NEGATIVE (NEGATIVE); BUPRENORPHINE SCREEN, URINE NEGATIVE (NEGATIVE); COCAINE SCREEN URINE NEGATIVE (NEGATIVE); METHADONE SCREEN, URINE NEGATIVE (NEGATIVE); METHAMPHETAMINES SCREEN, URINE NEGATIVE (NEGATIVE); OPIATE SCREEN, URINE NEGATIVE (NEGATIVE); OXYCODONE SCREEN, URINE NEGATIVE (NEGATIVE); THC CANNABINOID SCREEN, URINE NEGATIVE (NEGATIVE); TRICYCLIC ANTIDEPRESSANT,URINE NEGATIVE (NEGATIVE)
--- NOTE | 2023-10-01 11:36 | ED Physician Documentation ---
PD HPI MHE - Stated complaint Stated Complaint: SI/DEPRESSION - Chief complaint Chief Complaint: MHE - History obtained from History obtained from: Patient - History of Present Illness Primary symptom: Depression Pain level max: 0 Pain level now: 0 Recently seen: Not recently seen - Additional information Additional information: Patient is a 33-year-old male who comes to the emergency department for depression. He states this been ongoing for many years. He states that he has followed by psychiatry at the [facility]. He is active [employer]. He states he lives at home with his children. He did go through a divorce. He states that he is not suicidal but then states that yesterday he "wanted to cut my heart out". He states that he wanted to see what color it was because he is sure it is "black". He states that he has never attempted suicide. He has never been admitted for depression. He states that he is in the substance abuse program. He states his last alcohol use was June 2023. Review of Systems Constitutional: denies: Fever, Chills Nose: denies: Rhinorrhea / runny nose, Congestion Throat: denies: Sore throat Respiratory: denies: Dyspnea, Cough GI: denies: Abdominal Pain, Vomiting, Diarrhea Skin: denies: Rash Musculoskeletal: denies: Neck pain, Back pain Neurologic: denies: Headache Psychiatric: reports: Depressed, Anxiety. denies: Homicidal, Hallucinations PD PAST MEDICAL HISTORY - Past Medical History Cardiovascular: None Respiratory: None Endocrine/Autoimmune: None GI: None : None HEENT: None Psych: Anxiety, Panic attacks Musculoskeletal: None Derm: None - Past Surgical History Past Surgical History: No - Present Medications Home Medications: Ambulatory Orders Medication Instructions Recorded Confirmed Fluoxetine HCl [Prozac] 40 mg PO DAILY 05/01/21 10/01/23 Naltrexone HCl 50 mg PO DAILY 10/01/23 10/01/23 hydrOXYzine HCL [Hydroxyzine HCl] 25 mg PO BID PRN 10/01/23 10/01/23 traZODone [Desyrel] 100 mg PO HS 10/01/23 10/01/23 - Allergies Allergies/Adverse Reactions: Allergies Allergy/AdvReac Type Severity Reaction Status Date / Time No Known Drug Allergies Allergy Verified 10/01/23 11:05 - Social History Does the pt smoke?: Yes Smoking Status: Current every day smoker Does the pt drink ETOH?: No Does the pt have substance abuse?: No - Immunizations Immunizations are current?: Yes - POLST Patient has POLST: No PD ED PE NORMAL - Vitals Vital signs reviewed: Yes - General General: Alert and oriented X 3, No acute distress - HEENT HEENT: PERRL, Moist mucous membranes - Neck Neck: Supple, no meningeal sign - Cardiac Cardiac: RRR, Strong equal pulses - Respiratory Respiratory: No respiratory distress, Clear bilaterally - Abdomen Abdomen: Soft, Non tender, Non distended - Derm Derm: Warm and dry - Extremities Extremities: No edema - Neuro Neuro: Alert and oriented X 3 - Psych Psych: Normal mood, Normal affect Results - Vitals Vitals: Vital Signs - 24 hr 10/01/23 10/01/23 11:01 14:10 Temperature 36.8 C Heart Rate 82 80 Respiratory 18 15 Rate Blood Pressure 137/88 H 140/78 H O2 Saturation 97 98 Oxygen O2 Source Room air - Labs Labs: Laboratory Tests 10/01/23 10/01/23 10/01/23 10:59 11:14 11:14 WBC 10.3 RBC 5.68 Hgb 16.5 Hct 48.4 MCV 85.2 MCH 29.0 MCHC 34.1 RDW 13.1 Plt Count 322 MPV 10.4 Neut # (Auto) 7.2 H Lymph # (Auto) 2.2 Marshall # (Auto) 0.8 Eos # (Auto) 0.1 Baso # (Auto) 0.0 Absolute Nucleated RBC 0.00 Nucleated RBC % 0.0 Sodium 136 Potassium 4.3 Chloride 104 Carbon Dioxide 26 Anion Gap 6.0 BUN 15 Creatinine 1.0 Estimated GFR (MDRD) 86 L Glucose 107 H Calcium 10.8 H Magnesium 1.8 Total Bilirubin 0.6 AST 22 ALT 33 Alkaline Phosphatase 43 Total Creatine Kinase 119 Total Protein 7.9 Albumin 5.0 Globulin 2.9 Albumin/Globulin Ratio 1.7 Lipase 19 TSH 1.50 Urine Color YELLOW Urine Clarity CLEAR Urine pH 8.0 H Ur Specific [place] 1.020 Urine Protein NEGATIVE Urine Glucose (UA) NEGATIVE Urine Ketones NEGATIVE Urine Occult Blood NEGATIVE Urine Nitrite NEGATIVE Urine Bilirubin NEGATIVE Urine Urobilinogen 1 (NORMAL) Ur Leukocyte Esterase NEGATIVE Ur Microscopic Review NOT INDICATED Urine Culture Comments NOT INDICATED Salicylates < 1.5 Urine Opiates Screen NEGATIVE Ur Buprenorphine Scrn NEGATIVE Ur Oxycodone Screen NEGATIVE Urine Methadone Screen NEGATIVE Acetaminophen 0.1 Ur Barbiturates Screen NEGATIVE Ur Tricyclics Screen NEGATIVE Ur Phencyclidine Scrn NEGATIVE Ur Amphetamine Screen NEGATIVE U Methamphetamines Scrn NEGATIVE U Benzodiazepines Scrn NEGATIVE Urine Cocaine Screen NEGATIVE U Cannabinoids Screen NEGATIVE Ur Drug Screen Comment CUTOFF CONC BELOW: Ethyl Alcohol < 10.0 PD Medical Decision Making - ED course Complexity details: reviewed results, re-evaluated patient, considered differential, d/w patient, d/w application consultant ED course: Patient is not actively suicidal here. He is medically clear for psychiatric care. Social work was consulted. Social work was able to safety plan with the patient. He does not want to be admitted to a psychiatric hospital voluntarily and would not meet criteria for involuntary hospitalization. Has not made any suicidal plans, gestures or attempts. [place] Patient counseled regarding signs and symptoms for which I believe and urgent re-evaluation would be necessary. Patient with good understanding of and agreement to plan and is comfortable going home at this time This document was made in part using voice recognition software. While efforts are made to proofread this document, sound alike and grammatical errors may occur. Departure - Departure Disposition: 01 Home, Self Care Clinical Impression: Depression Qualifiers: Depression Type: unspecified Qualified Code(s): F32.A - Depression, unspecified Condition: Good Instructions: ED Depression Follow-Up: your,doctor tomorrow [Other] Comments: You were seen for depression today. You have created a safety plan with social work. Please follow-up with your doctor tomorrow and follow-up as instructed by social work. Please return if you worsen. Crisis Line and is available to talk to someone [email or web address] is also available to chat with someone online if you prefer. There are also many resources on this website and apps for your phone to help with your mental health You can also text the word START to [phone] to chat with someome via text. Forms: PCP List Discharge Date/Time: 10/01/23 14:11
[2023-10-01] MEDS: ALPRAZolam 0.25 MG TABLET PO STA (11:38)
[2023-10-01 11:57] LABS: ACETAMINOPHEN 0.1 ug/mL; ALBUMIN/GLOBULIN RATIO 1.7 (1.0-2.2); ALKALINE PHOSPHATASE 43 IU/L (42-121); ALT ALANINE AMINOTRANSFERASE 33 IU/L (10-60); AST ASPARTATE AMINOTRANSFERASE 22 IU/L (10-42); BILIRUBIN,TOTAL 0.6 mg/dL (0.2-1.0); BUN - BLOOD UREA NITROGEN 15 mg/dL (6-20); CALCIUM 10.8 mg/dL (8.5-10.3); CARBON DIOXIDE - CO2 26 mmol/L (21-32); CHLORIDE 104 mmol/L (101-111); CK- CREATINE KINASE 119 IU/L (30-223); ETOH - ETHANOL < 10.0 mg/dL; GFR - MDRD 86 (>89); GLUCOSE 107 mg/dL (74-104); LIPASE 19 U/L (11-82); MAGNESIUM 1.8 mg/dL (1.7-2.3); POTASSIUM 4.3 mmol/L (3.5-4.5); SODIUM 136 mmol/L (135-145); TOTAL PROTEIN 7.9 g/dL (6.4-8.9)
[2023-10-01 13:06] LABS: SALICYLATE < 1.5 mg/dL
[2023-10-01 14:16] VITALS: BP 140/78; O2SAT 98
== END 2023-10-01 14:11 | disposition home or self-care (01) ==
LOC: EDUNIT# → ED 10:44
DX: F32.A Depression, unspecified (principal); F17.200 Nicotine dependence, unspecified, uncomplicated; Z79.899 Other long term (current) drug therapy
CPT/HCPCS: 36415; 80053; 80143; 80179; 80306; 81003; 82077; 82550; 83690; 83735; 84443; 85025; 99284; A9270; 81001; 87086